=== PATIENT | female | born 1940 | race African-American/Black ===

== ENCOUNTER 2020-03-22 11:41 | Emergency (ER) | payer OTHER, BC ==
--- NOTE | 2020-03-22 12:07 | PDOC ---
Rapid Medical Evaluation Time Seen by Provider: 03/22/20 12:00 Medical Evaluation: Allergies Allergy/AdvReac Type Severity Reaction Status Date / Time Penicillins Allergy Verified 12/10/17 10:42 03/22/20 12:05 I performed a brief in-person evaluation of this patient. Pt is a 79 y/o female who tripped while at [employer] on a flower bed and fell hitting her face. She has had two brain bleeds in the past. No anticoagulation. R hand pain, R facial swelling and pain. No LOC. Unsure of last tetanus. Pertinent physical exam findings: R cheek swelling and pain, EOMI without difficulty, speaking in full sentences, no ataxia I have ordered the following: CT head, CT facial bones, R hand xr, Tetanus jose ster Patient to proceed to ED for further evaluation. Discharge Disposition - Diagnosis Fall - Referrals - Patient Instructions - Post Discharge Activity
[2020-03-22] MEDS ORDERED: DIPHTH,PERTUSS(ACELL),TET 0.5 ML DISP.SYRIN IM ONE ×2 (12:08→14:09)
[2020-03-22 12:12] VITALS: BP 155/45; PULSE 82; TEMP 99; BMI 24.1
--- OUTSIDE RECORDS SUMMARY | 2020-03-22 12:55 | XMS ---
:1940 Author Organization [facility] Support Name Relationship Address Phone RE Unavailable Unavailable Unavailable FERHERNANDEZ DAUGHTER [address] [place] [address] Re-disclosure Warning The records that you are about to access may contain information from federally- assisted alcohol or drug abuse programs. If such information is present, then the following federally mandated warning applies: This information has been disclosed to you from records protected by federal confidentiality rules (42 CFR part 2). The federal rules prohibit you from making any further disclosure of this information unless further disclosure is expressly permitted by the written consent of the person to whom it pertains or as otherwise permitted by 42 CFR part 2. A general authorization for the release of medical or other information is NOT sufficient for this purpose. The Federal rules restrict any use of the information to criminally investigate or prosecute any alcohol or drug abuse patient.The records that you are about to access may contain highly sensitive health information, the redisclosure of which is protected by Article 27-F of the [facility] Public Health law. If you continue you may haveaccess to information: Regarding HIV / AIDS; Provided by facilities licensed or operated by the [facility] Office of Mental Health; or Provided by the [facility] Office for People With Developmental Disabilities. If such information is present, then the following [facility] mandated warning applies: This information has been disclosed to you from confidential records which are protected by state law. State law prohibits you from making any further disclosure of this information without the specific written consent of the person to whom it pertains, or as otherwise permitted by law. Any unauthorized further disclosure in violation of state law may result in a fine or retirement sentence or both. A general authorization for the release of medical or other information is NOT sufficient authorization for further disclosure. Insurance Providers Payer name Policy type Policy ID Covered Covered alliance party's Policy P rolo / Coverage alliance party ID relationship to [employer] Inf ormation type shearer GHI CBP [id number] SP [id number] OUTPT BC PPO [id number] SP [id number] MEDICARE [id number] SP [id number] Medicare [id number] [employer]
--- NOTE | 2020-03-22 14:08 | PDOC ---
History of Present Illness - General History Source: Patient Exam Limitations: No Limitations - History of Present Illness Initial Comments: 03/22/20 14:03 79-year-old history of hypertension, diabetes, ruptured brain aneurysms x 2 presents complaining of facial and head injury status post mechanical trip and fall prior to ED arrival. Patient was walking on the street when she tripped over uneven pavement landing on her knees and right side of her face which struck a flower bed. Daughter was walking in front of her. Denies LOC, headache, changes in vision, neck pain, chest pain, back pain, abdominal pain or any other complaint. Unknown tetanus status. ROS: as above PE: GENERAL: well-appearing, NAD HEAD: NCAT EYES: EOMI, Pupils equal, round and reactive to light, sclera anicteric, conjunctiva clear ENT: Normal bilateral ear canals, no pelayo sign noted, pharynx: no erythema, no exudate, uvula midline NECK: supple CHEST: nontender RESP: clear, no w/r/r CARDIO: rrr, no m/g/r ABD: +BS, soft, nontender, non distended BACK: no midline spinal ttp, no CVAT EXTREMITIES: Swelling to dorsum of right hand, no ecchymoses, no bony tenderness to palpation, positive radial pulse, normal range of motion NEUROLOGICAL: Normal speech, normal gait SKIN: Superficial abrasion to right infraorbital area, no active bleeding or ecchymosis noted, small minimal abrasion noted to both knees Is this a multiple visit Asthma Patient?: No <Giluia Norton - Last Filed: 03/22/20 14:23> <Brii Butts - Last Filed: 03/22/20 14:29> - General Chief Complaint: Injury Stated Complaint: SLIP AND FALL Time Seen by Provider: 03/22/20 12:00 Past History - Medical History CVA: Yes (bleed x 2 2 years ago) COPD: No Diabetes: Yes HTN: Yes - Reproductive History Is Patient Now?: No - Psycho-Social/Smoking History Smoking History: Never smoked Have you smoked in the past 12 months: No Information on smoking cessation initiated: No - Substance Abuse Hx (Audit-C & DAST Scrn) How often the patient has a drink containing alcohol: Never Score: In Men: 4 or > Positive; In Women: 3 or > Positive: 0 Screen Result (Pos requires Nsg. Audit-10AR): Negative In the last yr the pt used illegal drug/Rx for NonMed reason: No Score: Yes response is considered Positive: 0 Screen Result (Positive result requires Nsg. DAST-10): Negative <Giulia Norton - Last Filed: 03/22/20 14:23> <Brii Butts - Last Filed: 03/22/20 14:29> - Medical History Allergies/Adverse Reactions: Allergies Allergy/AdvReac Type Severity Reaction Status Date / Time Penicillins Allergy Verified 03/22/20 12:09 Home Medications: Ambulatory Orders Latanoprost 0.005% Eye Drops [Xalatan 0.005% Eye Drops -] 1 drop OU HS 12/10/17 Timolol 0.25% [Timoptic 0.25%] 1 drop OU BID 12/10/17 Valsartan [Diovan] 80 mg PO DAILY 12/10/17 metFORMIN HCL [Metformin HCl] 500 mg PO DAILY 12/10/17 *Physical Exam - Vital Signs Last Vital Signs Temp Pulse Resp BP Pulse Ox 99.0 F 82 17 155/45 L 100 03/22/20 12:06 03/22/20 12:06 03/22/20 12:06 03/22/20 12:06 03/22/20 12:06 <Giulia Norton - Last Filed: 03/22/20 14:23> - Vital Signs Last Vital Signs Temp Pulse Resp BP Pulse Ox 99.0 F 82 17 155/45 L 100 03/22/20 12:06 03/22/20 12:06 03/22/20 12:06 03/22/20 12:06 03/22/20 12:06 <Brii Butts - Last Filed: 03/22/20 14:29> ED Treatment Course - RADIOLOGY Radiology Studies Ordered: Category Date Time Status CERVICAL SPINE CT W/O CONTR [CT] Stat CT Scan 03/22/20 12:14 Completed - Medications Given in the ED: ED Medications Discontinued Medications Generic Name Dose Route Start Last Admin Trade Name Freq PRN Reason Stop Dose Admin Diphtheria/Tetanus/Acell Pertussis 0.5 ml 03/22/20 12:08 03/22/20 14:22 Boostrix - IM 03/22/20 12:09 0.5 ml .ONCE ONE Administration <Brii Butts - Last Filed: 03/22/20 14:29> Medical Decision Making - Medical Decision Making 03/22/20 14:07 79-year-old history of hypertension, diabetes, ruptured brain aneurysms x 2 presents complaining of facial and head injury status post mechanical trip and fall prior to ED arrival. Patient was walking on the street when she tripped over uneven pavement landing on her knees and right side of her face which s truck a flower bed. Daughter was walking in front of her. Denies LOC, headache, changes in vision, neck pain, chest pain, back pain, abdominal pain or any other complaint. Unknown tetanus status. Head CT, cervical CT, facial bone CT ordered by E provider Right hand x-ray Tetanus 03/22/20 14:23 head, cervical, facial CT: No acute findings Right hand x-ray: No bony fracture on my wet read Advised patient to apply ice over the area, alternate between acetaminophen 650 mg and ibuprofen 400 mg every 6 hours as needed Tdap given today Stable for discharge Return precautions discussed <Giulia Norton - Last Filed: 03/22/20 14:23> - Medical Decision Making The patient was seen and evaluated in conjunction with midlevel provider under my direct supervision, ancillary studies were reviewed. I agree with the plan as outlined withDELIA Norton. HPI, workup/dispo as outlined. VS reviewed, wnl. Vital Signs Temp Pulse Resp BP Pulse Ox 99.0 F 82 17 155/45 L 100 03/22/20 12:06 03/22/20 12:06 03/22/20 12:06 03/22/20 12:06 03/22/20 12:06 CT head neg for acute bleed/ CT cervical spine with degenerative changes, no acute fx/subluxation no facial bone fx. hand xray appears neg for fx/dislocation, normal alignment. anticipate discharge, pcp followup, return precautions 03/22/20 14:29 <Brii Butts - Last Filed: 03/22/20 14:29> Discharge - Discharge Information Problems reviewed: Yes - Admission No <Giulia Norton - Last Filed: 03/22/20 14:23> <Brii Butts - Last Filed: 03/22/20 14:29> - Discharge Information Clinical Impression/Diagnosis: Fall Qualifiers: Encounter type: initial encounter Qualified Code(s): W19.XXXA - Unspecified fall, initial encounter Disposition: HOME - Follow up/Referral Referrals: Jono Parekh MD, MD [Primary Care Provider] - - Patient Discharge Instructions Additional Instructions: Alternate between acetaminophen 650 mg and ibuprofen 400 mg every 6 hours as needed Apply ice over swollen area of right hand If you develop headache, vomiting, chest pain, shortness of breath or any concerning symptom return to ED Follow-up with your doctor within 1 week - Post Discharge Activity
== END 2020-03-22 14:42 | disposition home or self-care (01) ==
LOC: JER 11:41
PROC: 3E0234Z Introduction of Serum, Toxoid and Vaccine into Muscle, Percutaneous Approach (ICD-10-PCS; principal; 2020-03-22)
DX: Z04.3 Encounter for examination and observation following other accident (principal)
CPT/HCPCS: 70450-TC; 70486-TC; 72125-TC; 73130-TC-RT-FY; 90715; 99284-25